=== PATIENT | female | born 1955 | race Caucasian/White ===

== ENCOUNTER → 2018-11-17 | Day surgery (SDC) | payer OTHER ==
[~2018-11-17] MED LIST: ALPR0.254 PO; AMIT50TA PO; ASPI-482 PO; BACI1CAP4 PO; CETI10TA16 PO; FENO54TA PO; FLAX100017 PO; FLUT9.9S NS; GINK120C PO; GLUC100018 PO; IV RINGERS,LACTATED 1000ML 1,000 ML IV SCH; LOSA100T14 PO; METO-269 PO; MULT-650 PO; PANT40TA77 PO; PROPOFOL 40 ML IV ONE; SERT100T PO; TURM538C PO; VITA100022 PO
[2018-11-17 14:11] VITALS: BP 115/58
--- NOTE | 2018-11-17 14:27 | PDOC4 ---
PROCEDURE Procedure EGD/biopsies, Colonoscopy with biopsies. Indication: R/o Belcher's, Screening Meds: per anesthesia. Findings: E-Mild reflux esophagitis at 39cm. G-Prepyloric erosions/mild erythema, patchy. Biopsies taken. D-Normal to second portion. OMEGA: normal -Colonoscope advanced to cecum. Mucosa normal. Multiple diverticula, sigmoid to hepatic flexure. 3mm rectal polyp, biopsied off. Internal hemorrhoids noted. Jemima. well. IMP: Mild GERD Gastric erosions Diverticulosis Small rectal polyp. Hemorrhoids. REC: Await path. Resume home meds and diet. Call in 1-2 weeks re: path. ROSA ELENA STYLES MD Nov 17, 2018 14:27
--- NOTE | 2018-11-19 16:17 | PATHOLOGY ---
[facility] Accession Number: [id number] . 01 Material submitted: . PART A: stomach - ANTRUM BIOPSY PART B: rectum - RECTAL POLYP . 01 Clinical history: . Pre-OP DX: GERD/screening Post-OP DX: Reflux/polyp . 02 Diagnosis: A. Gastric biopsies, antrum: - Congestion and focal mild chronic inflammation. . B. Colorectal biopsy, rectal polyp: - Consistent with hyperplastic polyp, with two mucosal-associated lymphoid aggregates. . (JPM:mmjeane; 11/19/2018) COUNTS INCLUDE 234 BEDS AT THE [facility]/11/19/2018 . 02 Comment: Sections of the gastric antral biopsy show congestion and focal mild chronic inflammation. A properly-controlled immunoperoxidase stain for Helicobacter is negative for Helicobacter organisms. Sections of the rectal biopsy reveal a segment of rectal mucosa showing focal superficial epithelial hyperplastic changes consistent with hyperplastic polyp. There are two small mucosal-associated lymphoid aggregates. There are no adenomatous changes or evidence of malignancy. . Special stain (A1): Helicobacter . 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 02 Electronically signed: . Duy Tyler MD, Pathologist NPI- [id number] . 01 Gross description: . A. Received in formalin labeled "Jhonny Gabriel, antrum BX," is a single segment of denise soft tissue measuring 0.6 cm in maximum dimension. The specimen is entirely submitted in cassette A1. . B. Received in formalin labeled "Jhonny Gabriel, rectal polyp," is a single segment of denise soft tissue measuring 0.4 cm in maximum dimension. The specimen is entirely submitted in cassette B1. (TSD; 11/18/2018) TOB/TOB . 02 Pathologist provided ICD-10: K29.50, K63.5 . 02 CPT . 195972, 261605, [id number] Specimen Comment: A courtesy copy of this report has been sent to Specimen Comment: [phone], , . Specimen Comment: Report sent to ,DR SAAVEDRA / DR KRUSE Performed at: [address] [facility] [address], [place], [place] [id number] MD Ezio Teran MD Phone: [phone] Performed at: 02 [facility] [place] [address] [place], [place] [id number] MD Duy Tyler MD Phone: [phone]
== END ==
LOC: SURG 11:56
PROVIDERS: ATTEND Internal Medicine Gastroenterology
DX: Z12.11 Encounter for screening for malignant neoplasm of colon (principal); K62.1 Rectal polyp; K29.50 Unspecified chronic gastritis without bleeding; K57.30 Diverticulosis of large intestine without perforation or abscess without bleeding; K64.0 First degree hemorrhoids; K31.9 Disease of stomach and duodenum, unspecified; K22.70 Barrett's esophagus without dysplasia; F41.9 Anxiety disorder, unspecified; E78.00 Pure hypercholesterolemia, unspecified; I10 Essential (primary) hypertension; Z79.82 Long term (current) use of aspirin; Z88.1 Allergy status to other antibiotic agents; Z88.0 Allergy status to penicillin; Z72.89 Other problems related to lifestyle; Z98.51 Tubal ligation status; Z98.890 Other specified postprocedural states
CPT/HCPCS: 43239; 45380; J2704